=== PATIENT | female | born 2000 | race Two or more races ===

== ENCOUNTER 2022-05-21 10:25 | Outpatient (CLI) | payer OTHER | END 2022-05-21 10:26 | disposition home or self-care (01) | LOC: LAB 10:25 | PROVIDERS: ATTEND Obstetrics & Gynecology | DX: E78.5 Hyperlipidemia, unspecified (principal); E03.9 Hypothyroidism, unspecified; E11.8 Type 2 diabetes mellitus with unspecified complications; N93.0 Postcoital and contact bleeding; E55.9 Vitamin D deficiency, unspecified ==

== ENCOUNTER → 2025-02-17 | Emergency (ER) | payer OTHER ==
[~2025-02-17] VITALS: Ht 162.6 cm; Wt 57.2 kg
[~2025-02-17] MED LIST: HYOSCYAMINE SULFATE 0.125 MG TAB.SUBL ONE; HYOSCYAMINE SULFATE 0.125 MG TAB.SUBL SL ONE; MAG HYDROX/ALUMINUM HYD/SIMETH 30 ML BLIST.PACK PO ONE; MAG HYDROX/ALUMINUM HYD/SIMETH 30 ML BLIST.PACK PO STA
[2025-02-17 18:23] LABS: HEMATOCRIT 40.5 % (36.0-45.00); HEMOGLOBIN 13.5 g/dL (12.0-15.00); MEAN CELL VOLUME 84.5 fL (80.00-100.00); MEAN CORPUSCULAR HEMOGLOBIN 28.1 pg (27.00-32.0); MEAN CORPUSCULAR HGB CONC 33.3 g/dl (32.0-36.0); PLATELET COUNT 299 K/uL (150-450); RED BLOOD COUNT 4.79 M/uL (4.00-6.00); RED CELL DISTRIBUTION WIDTH 13.2 % (11.5-14.5)
[2025-02-17 18:40] LABS: AMYLASE 52 U/L (25-115); LIPASE 36 U/L (13-75)
== END | disposition home or self-care (01) ==
LOC: ER 17:23
PROVIDERS: Emergency Medicine
DX: K21.9 Gastro-esophageal reflux disease without esophagitis (principal)